=== PATIENT | female | born 1950 ===

== ENCOUNTER 2023-06-14 05:10 | Day surgery (SDC) | payer OTHER ==
[~2023-06-14] VITALS: Ht 152.4 cm; Wt 78.0 kg
[2023-06-14] MEDS ORDERED: OXYC1TAB9 PO (08:01)
== END 2023-06-14 15:30 | disposition home or self-care (01) ==
LOC: CIR.AMB 05:10
PROVIDERS: ATTEND Surgery
DX: D12.9 Benign neoplasm of anus and anal canal (principal); K62.5 Hemorrhage of anus and rectum; K64.8 Other hemorrhoids; I10 Essential (primary) hypertension; Z20.822 Contact with and (suspected) exposure to COVID-19; Z86.010 Personal history of colon polyps; Z88.0 Allergy status to penicillin